=== PATIENT | male | born 1990 | race African-American/Black ===

== ENCOUNTER 2019-11-30 08:12 | Emergency (ER) | payer BC, SELFPAY ==
--- NOTE | ~2019-11-30 | XR_ITS ---
EXAMINATION: XR chest 1V portable EXAM DATE: 11/30/2019 09:07 INDICATION: Fever. TECHNIQUE: Portable AP frontal chest x-ray was obtained. There is no prior study for comparison. FINDINGS: Vaguely increased density over the left midlung zone, possible small amount acute airspace disease. This finding has been indicated, marked on the examination for review, clinical correlation. The lungs are otherwise clear. There are no pleural effusions. The cardiomediastinal silhouette is within normal limits. There is no pneumothorax suspected. The bones and soft tissues are unremarka ble. IMPRESSION: Small region of vague increased left basilar density, possible developing acute airspace disease. Reviewed, dictated and finalized at location B. IMPRESSION: Small region of vague increased left basilar density, possible deve loping acute airspace disease.
[2019-11-30] MEDS: ACETAMINOPHEN 500 MG TABLET 1000 MG PO (09:00)
[2019-11-30 09:02] VITALS: BP 141/76; PULSE 95; RESP 16; TEMP 38.6; O2SAT 99
[2019-11-30 09:10] LABS: Basophils Absolute Auto 0.1 K/mm3 (0.0-0.1); Basophils Percent Auto 0.9 % (0.2-1.2); Eosinophils Percent Auto 0.5 % (0-4.4); Hematocrit 48.4 % (42.0-52.0); Hemoglobin 15.9 g/dL (14.0-18.0); Immature Granulocyte Absolute 0.01 K/mm3 (0.00-0.031); Immature Granulocyte Percent A 0.2 % (0-0.5); Lymphocytes Absolute Auto 0.89 K/mm3 (0.9-3.2); Lymphocytes Percent Auto 15.6 % (18.3-44.2); Mean Corpuscular HGB Conc 32.9 g/dl (32-36); Mean Corpuscular Hemoglobin 27.6 pg (26-34); Mean Corpuscular Volume 83.9 fl (80-100); Mean Platelet Volume 9.4 fl (7.4-10.4); Neutrophils Absolute Auto 3.8 K/mm3 (1.3-6.7); Neutrophils Percent Auto 65.8 % (45.5-73.1); Platelet Count Result 204 k/mm3 (150-375); Red Blood Count 5.77 M/mm3 (4.6-6.20); Red Cell Distribution Width 13.3 % (11.5-14.5); White Blood Count 5.7 K/mm3 (4.5-10.0)
--- NOTE | 2019-11-30 09:14 | ED.FEVER ---
HPI - Fever General Chief Complaint: Fever Stated Complaint: waking up sweating Time Seen by Provider: 11/30/19 08:35 Source: patient Mode of arrival: ambulatory Limitations: no limitations History of Present Illness HPI Narrative: This patient is a 28 year old male who presents for evaluation of a fever. He states over the past couple of days he has been waking up sweating and feeling like he has a fever. He has been unable to check temperature at home but he was found to have fever in ED today of 101.5F. He has been on antibiotics for 4 days for dental abscess .He states he didn't even know he had an abscess until his dentist diagnosed it. He has no symptoms. HE denies cough, sore throat , chest pain, abdominal pain, nausea, vomiting or diarrhea. He last took medication last night at 11 pm. Related Data Home Medications Medication Instructions Recorded Confirmed clindamycin HCl 11/30/19 Allergies Allergy/AdvReac Type Severity Reaction Status Date / Time No Known Allergies Allergy Verified 11/30/19 09:05 Review of Systems Review of Systems: All systems reviewed & are unremarkable except as noted in HPI and below Constitutional: Constitutional: Reports fatigue and Reports fever(s) ENT: Denies dysphagia, Denies epistaxis and Denies sore throat Cardiovascular: Cardiovascular: Denies chest pain Respiratory: Respiratory: Denies cough, Denies dyspnea and Denies wheezing Gastrointestinal: Gastrointestinal: Denies abdominal pain, Denies diarrhea, Denies nausea and Denies vomiting Genitourinary: Genitourinary: Denies oliguria, Denies dysuria, Denies penile discharge and Denies urinary frequency Musculoskeletal: Musculoskeletal: Denies back pain and Denies myalgias Neurologic: Denies dizziness and Denies weakness PMFSH Past Medical History Medical History (Updated 11/30/19 @ 11:27 by Luz Clayton MD) Patient denies medical problems Surgical History Surgical History (Updated 11/30/19 @ 09:14 by Luz Clayton MD) No significant past surgical history Social History Social History (Updated 11/30/19 @ 09:15 by Luz Clayton MD) Smoking status: Never smoker Alcohol intake: current Alcohol use details: 1 pint of day Substance use: never Gender identity (if verbalized by the patient): Male Exam Narrative: Exam Narrative: GENERAL: Well-appearing, well-nourished, and in no acute distress. HEAD: Normocephalic, atraumatic EYES: PERRLA and EOMI, conjunctiva clear without discharge EARS: TM's clear bilaterally without erythema or dullness NOSE: Nares clear, no rhinorrhea or epistaxis THROAT:Mucous membranes moist, Oropharynx normal without erythema, exudate, peritonsillar swelling or fluctuance NECK: Supple, without lymphadenopathy or mass RESPIRATORY: No respiratory distress, Airway patent, Respirations non-labored, Clear to auscultation without rales, rhonchi or wheeze HEART: Regular rate and rhythm. No murmur heard. Normal peripheral pulses. ABDOMEN: Soft, nontender, nondistended, normal active bowel sounds. No masses. No rebound or guarding, No organomegaly. EXTREMITIES: No edema, normal strength with full range of motion. SKIN: Warm, dry, normal color without rash NEURO: Alert and oriented x3. CN 2-12 grossly intact. No focal deficits. PSYCH: Normal mood and affect. Course Reevaluation(s) Reevaluation #1: I have discussed with patient that chest xray shows possible pneumonia. HE will also be tested for covid. Date: 11/30/19 Time: 11:25 Vital Signs Vital signs: Vital Signs Temperature 101.5 F H 11/30/19 09:02 Pulse Rate 95 11/30/19 09:02 Respiratory Rate 16 11/30/19 09:02 Blood Pressure 141/76 H 11/30/19 09:02 Pulse Oximetry 99 11/30/19 09:02 Temperature 99.5 F 11/30/19 09:30 Pulse Rate 92 11/30/19 12:00 Respiratory Rate 16 11/30/19 12:00 Blood Pressure 141/71 H 11/30/19 12:00 Pulse Oximetry 99 11/30/19 12:00
[2019-11-30 09:16] LABS: Add Urine Microscopic? YES; Appearance Urine Clear (Clear); Bilirubin Urine Negative (Negative); Blood Urine Negative (Negative); Color Urine Yellow (Yellow); Glucose Urine UA Negative (Negative); Ketones Urine Negative (Negative); Leukocyte Esterase Ur Negative LEU/UL (Negative); Nitrate Urine Negative (Negative); Protein Urine Negative (Negative); RBC Urine 0-2 /hpf (0-2); Specific Grav Ur 1.017 (1.001-1.035); Squamous Epithelial Cell Urine Rare /hpf (Few); Urobilinogen Urine Negative mg/dL (<2.0); WBC Urine 0-3 /hpf
[2019-11-30 09:30] VITALS: TEMP 37.5
[2019-11-30 09:31] LABS: Alanine Aminotransferase 25 U/L (4-50); Albumin Level 4.8 g/dL (3.5-5.1); Alkaline Phosphatase 92 U/L (38-126); Aspartate Amino Transferase 37 U/L (17-59); Bilirubin,Total 0.6 mg/dL (0.2-1.3); Blood Urea Nitrogen 14 mg/dL (9-20); CRP < 0.5 mg/dL (<1.0); Calcium 9.1 mg/dL (8.4-10.2); Carbon Dioxide 27 mmol/L (22-30); Chloride 101 mmol/L (98-107); Estimated CRCL calculation 75 ml/min; Estimated Glomerular Filt Rate > 60; Glucose 118 mg/dL (75-110); Potassium 4.1 mmol/L (3.4-5.0); Sodium 137 mmol/L (137-145)
[2019-11-30 10:30] VITALS: BP 140/65; PULSE 90; RESP 16; O2SAT 99
[2019-11-30] MEDS: AZITHROMYCIN 250 MG TABLET 500 MG PO (11:46)
[2019-11-30] MEDS: WATER, STERILE FOR INJECTION 10 ML VIAL XX (11:47)
[2019-11-30] MEDS: cefTRIAXone 1 GM VIAL IM (11:47)
[2019-11-30 12:00] VITALS: BP 141/71; PULSE 92; RESP 16; O2SAT 99
[2019-11-30 22:36] LABS: SARS-CoV-2 RNA PCR Positive
== END 2019-11-30 12:07 | disposition home or self-care (01) ==
PROVIDERS: Emergency Provider General Practice
DX: U07.1 COVID-19 (principal)
CPT/HCPCS: 36415; 71045; 80053; 81001; 85025; 86140; 87635; 87804; 96372; 99283; A9270; C9803; J0696; U0003

== ENCOUNTER 2023-08-05 17:12 | Emergency (ER) | payer BC, SELFPAY ==
--- NOTE | ~2023-08-05 | XR_ITS ---
EXAMINATION: XR shoulder LT min 2V DATE: 08/05/2023 17:34 INDICATION: Left shoulder injury. TECHNIQUE: 4 views of left shoulder were obtained. COMPARISON: None. FINDINGS: Bone alignment is normal. No fracture. There is mild osteoarthritis of glenohumeral joint a nd acromioclavicular joint. IMPRESSION: 1. Mild polyarticular osteoarthritis. Reviewed, dictated and finalized at location E. [facility]
[2023-08-05 17:22] VITALS: BP 140/100; PULSE 82; RESP 16; TEMP 36.4; O2SAT 99
--- NOTE | 2023-08-05 17:25 | ED.UPPEXIN ---
HPI - Extremity Injury (Upper) General Chief Complaint: Extremity Injury, Upper Stated Complaint: Left Shoulder Pain Source: patient Mode of arrival: ambulatory Limitations: no limitations History of Present Illness HPI narrative: 32 y/o male presented for c/o left shoulder pain x3 days. States it started after wrestling with a friend while drinking alcohol. Says he cannot recall the exact mechanism of injury but knows the friend fell onto his shoulder and he then he fell on the shoulder again.States he heard a pop. Took motrin on an empty stomach which resulted in stomach pain, so he started taking Tylenol #3 leftover from dental surgery. Denies significant improvement in pain. Reports decreased ROM to the shoulder due to pain. Denies numbness, tingling, weakness of the extremity. Related Data Allergies Allergy/AdvReac Type Severity Reaction Status Date / Time No Known Allergies Allergy Verified 08/05/23 17:13 Review of Systems Review of Systems: CONSTITUTIONAL: Denies body aches, fever, chills EYES: Denies visual changes ENT: Denies rhinorrhea, congestion CARDIOVASCULAR: Denies chest pain, palpitations, or edema. SKIN: Denies rash, itching, or wounds. MUSCULOSKELETAL: Reports left shoulder pain Denies back pain, or myalgia. NEUROLOGIC: Denies headache, numbness, tingling, or weakness. All systems reviewed & are unremarkable except as noted in HPI and below PMFSH Past Medical History Medical History Patient denies medical problems Surgical History Surgical History No significant past surgical history Social History Social History Smoking status: Never smoker Alcohol intake: current Alcohol use details: 1 pint of day Substance use: never Gender identity (if verbalized by the patient): Male Comments At time of signature, I have reviewed and agree with nursing past medical, surgical, social and family history unless otherwise noted. Please see nursing chart for further information. There is no relevant family history pertinent to the presenting complaint Exam Narrative: GENERAL: Well-appearing CHEST: Speaks in full sentences. No respiratory distress. HEART: Regular rate and rhythm. Normal and equal peripheral pulses. EXTREMITIES: Left upper shoulder/clavicle bruising and tenderness. Decreased range of motion at left shoulder, cannot tolerate overhead movement, reports pain after 90 degrees abduction. Left arm has normal strength and sensation. No open wounds or obvious deformity; alignment normal, pulse palpable and equal bilaterally, skin warm, dry, without discoloration. Capillary refill less than 3 seconds. SKIN: Warm, dry NEURO: Alert and oriented x3. PSYCH: Normal mood and affect Extrem: Shoulder/upper arm images: 1. area of bruising Course Course Emergency Course: Patient is aware of diagnosis, understands and agrees to treatment plan. Anticipatory guidance given. Patient agrees to follow-up as directed and is aware of reasons to seek care at the emergency department. Portions of this record may have been created with voice recognition software Level of Care: Express Care Visit Vital Signs Vital signs: Vital Signs Temperature 97.5 F L 08/05/23 17:22 Pulse Rate 82 08/05/23 17:22 Respiratory Rate 16 08/05/23 17:22 Blood Pressure 140/100 H 08/05/23 17:22 Pulse Oximetry 99 08/05/23 17:22 Oxygen Delivery Room Air 08/05/23 17:22 Temperature 97.5 F L 08/05/23 17:22 Pulse Rate 82 08/05/23 17:22 Respiratory Rate 16 08/05/23 17:22 Blood Pressure 140/100 H 08/05/23 17:22 Pulse Oximetry 99 08/05/23 17:22 Oxygen Delivery Room Air 08/05/23 17:22 Reviewed MDM - Extremity Injury (Upper) MDM Narrative Medical decision making narrative: results of x-ray reviewed with
== END 2023-08-05 18:00 | disposition home or self-care (01) ==
PROVIDERS: Emergency Provider Nurse Practitioner Family
DX: M25.512 Pain in left shoulder (principal)
CPT/HCPCS: 73030; 99213; G0463

== ENCOUNTER 2024-02-12 08:20 | Emergency (ER) | payer OTHER, MEDICAID, SELFPAY ==
[2024-02-12 08:28] VITALS: BP 136/73; PULSE 100; RESP 19; TEMP 37.7; O2SAT 99
--- NOTE | 2024-02-12 08:49 | ED.URI ---
HPI - URI/Sore Throat General Chief Complaint: Upper Respiratory Infection Stated Complaint: Bodyaches/Fever Time Seen by Provider: 02/12/24 08:51 Source: patient, RN notes reviewed and old records reviewed Mode of arrival: ambulatory Limitations: no limitations History of Present Illness HPI Narrative: Patient presents with complaints of flu-like symptoms including headache, body aches, runny nose. States symptoms have been present for 1-2 days. He states he has not noticed a fever at home. He has been taking ibuprofen with good relief. He denies any injury or trauma. He is not in any distress, including respiratory distress. He voices no other concerns or complaints today. Related Data Home Medications Medication Instructions Recorded Confirmed No Home Medications 02/12/24 02/12/24 Allergies Allergy/AdvReac Type Severity Reaction Status Date / Time No Known Allergies Allergy Verified 02/12/24 08:39 Review of Systems Review of Systems: All systems reviewed & are unremarkable except as noted in HPI and below Constitutional: Constitutional: Reports as per HPI, Reports no additional constitutional complaints, Reports body ache(s), Reports chills and Reports headache(s) ENT: Reports system reviewed and no additional complaints, except as documented, Reports as per HPI and Reports nasal discharge Cardiovascular: Cardiovascular: Reports no additional cardiovascular complaints Respiratory: Respiratory: Reports no additional respiratory complaints Gastrointestinal: Gastrointestinal: Reports no additional gastrointestinal complaints Musculoskeletal: Musculoskeletal: Reports no additional musculoskeletal complaints and Reports as per HPI [facility] Past Medical History Medical History Patient denies medical problems Surgical History Surgical History No significant past surgical history Social History Social History Smoking status: Never smoker Alcohol intake: current Alcohol use details: 1 pint of day Substance use: never Gender identity (if verbalized by the patient): Male Comments At the time of my signature, I reviewed and agree with the nursing past medical, surgical, social, and family history. There is no relevant family history pertinent to the patient complaint. Exam Const: General: cooperative, no acute distress, alert and awake Orientation/consciousness: oriented to person, oriented to place and oriented to time HENMT: Head: normal to inspection Ears: TM's normal bilaterally Face/Nose/Sinus: Nasal discharge present clear Mouth: Yes moist mucous membranes Throat: posterior oropharynx abnormal erythema Resp: Effort & Inspection: normal respiratory effort and able to speak in complete sentences Auscultation: clear to auscultation bilaterally, no crackles, no rales, no rhonchi and no wheezes Cardio: Palpation: normal PMI Rate: regular rate Rhythm: regular rhythm Heart sounds: S1 normal heart sound present and S2 normal heart sound present Neuro: General: oriented to person, oriented to place and oriented to time Cranial nerves: Yes CN's II-XII intact bilaterally Psych: Appearance: grossly normal Thought process: Normal thought process present Insight: Good insight present (Psych) Judgement: Good judgement present (Psych) Course Course Level of Care: Express Care Visit Vital Signs Vital signs: Vital Signs Temperature 100 F H 02/12/24 08:28 Pulse Rate 100 02/12/24 08:28 Respiratory Rate 19 02/12/24 08:28 Blood Pressure 136/73 02/12/24 08:28 Pulse Oximetry 99 02/12/24 08:28 Oxygen Delivery Room Air 02/12/24 08:28 Temperature 100 F H 02/12/24 08:28 Pulse Rate 100 02/12/24 08:28 Respiratory Rate 19 02/12/24 08:28 Blood Pressure 136/73 02/12/24 08:28 Pulse Oximetry 99 02/12/24
[2024-02-12 08:54] LABS: EDCOVIDSCREEN Positive (Negative); EDINFLUASCREEN Negative (Negative); EDINFLUBSCREEN Negative (Negative)
== END 2024-02-12 09:02 | disposition home or self-care (01) ==
PROVIDERS: Emergency Provider Nurse Practitioner Family
DX: U07.1 COVID-19 (principal)
CPT/HCPCS: 87635; 87804; 99213; G0463